=== PATIENT | female | born 2005 | race Hispanic/Latino ===

== ENCOUNTER 2025-03-08 16:42 | Emergency (ER) | payer BC ==
[~2025-03-08] VITALS: Ht 160 cm; Wt 51.3 kg
[2025-03-08 17:09] LABS: BASOPHILS % 0.6 % (0.0-1.0); EOSINOPHILS % 3.2 % (0.0-6.0); LYMPHOCYTES % 36.4 % (18.0-39.1); MONOCYTES % 7.8 % (4.4-11.3); NEUTROPHILS % 51.8 % (38.7-80.0); RED CELL DISTRIBUTION WIDTH 12.3 % (11.7-14.4)
[2025-03-08] MEDS ORDERED: SODIUM CHLORIDE FLUSH 10 ML SYR IV PRN (17:15)
[2025-03-08 17:22] VITALS: TEMP 98.3
[2025-03-08 17:32] LABS: EST GLOMERULAR FILTRATION RATE 120.0 ML/MIN (>=60)
[2025-03-08] MEDS: SODIUM CHLORIDE 0.9% 1000ML 1,000 ML IV ONE (17:46)
[2025-03-08 17:57] VITALS: PULSE 93; RESP 15; O2SAT 100
[2025-03-08 18:01] LABS: AMPHETAMINES SCREEN,URINE NEGATIVE (NEGATIVE); CANNABINOIDS SCREEN,URINE NEGATIVE (NEGATIVE); COCAINE SCREEN,URINE NEGATIVE (NEGATIVE); LEUKOCYTE ESTERASE ,URINE NEGATIVE (NEGATIVE); METHADONE SCREEN, URINE NEGATIVE (NEGATIVE); OPIATES SCREEN,URINE NEGATIVE (NEGATIVE); PROTEIN,URINE DIPSTICK NEGATIVE (NEGATIVE); URINE UROBILINOGEN 2 mg/dL (0.2 - 1)
[2025-03-08 18:02] LABS: EPITHELIAL CELLS,URINE FEW /LPF; WBC,URINE (MAN) 0-5 /HPF (0-5)
[2025-03-08] MEDS ORDERED: OMEPRAZOLE40 MG PO (18:43)
[2025-03-08] MEDS ORDERED: ONDANSETRON ODT4 MG PO (18:43)
[2025-03-08 19:33] VITALS: BP 127/68; PULSE 76; RESP 18; TEMP 98.6
== END 2025-03-08 19:00 | disposition home or self-care (01) ==
LOC: ER 17:02
DX: F41.9 Anxiety disorder, unspecified (principal); K22.6 Gastro-esophageal laceration-hemorrhage syndrome; R94.31 Abnormal electrocardiogram [ECG] [EKG]
CPT/HCPCS: 36415; 71045; 80053; 80307; 81001; 84484; 84702; 85025; 93005; 94760; 99284; J7030